=== PATIENT | male | born 1990 | race Caucasian/White ===

== ENCOUNTER 2019-03-13 12:14 | Emergency (ER) | payer OTHER ==
[~2019-03-13] VITALS: Ht 172.7 cm; Wt 95.3 kg
[2019-03-13] MEDS ORDERED: IBUPROFEN 800800 M1 PO (12:58)
[2019-03-13 13:15] VITALS: BP 141/87
== END 2019-03-13 13:17 | disposition home or self-care (01) ==
LOC: ER 12:14
DX: S90.31XA Contusion of right foot, initial encounter (principal); Z23 Encounter for immunization; W22.8XXA Striking against or struck by other objects, initial encounter; Y93.89 Activity, other specified; Y92.89 Other specified places as the place of occurrence of the external cause; Y99.8 Other external cause status